=== PATIENT | female | born 1995 | race Caucasian/White ===

== ENCOUNTER → 2016-08-24 | Outpatient (CLI) | payer BC ==
[~2016-08-24] MED LIST: BACTRIM DS 8001 TA1 PO; DEPO SHOT IM; DONNATAL1 TAB PO; FLAGYL500 MG PO; HYDROCODONE BIT1 T11 PO; LOMOTIL 0.025 M1 TA1 PO; MEDROL DOSEPAK4 MG PO; MIRALAX POWDER255 GM PO; NAPROSYN500 MG PO; ONDANSETRON4 MG SL; PROZAC20 MG PO; TYLENOL W/CODEI1 TA2 PO; ZANTAC150 MG PO; ZITHROMAX250 MG PO; ZOLOFT100 MG PO
== END | disposition home or self-care (01) ==
LOC: LAB 12:19
DX: N91.2 Amenorrhea, unspecified (principal)

== ENCOUNTER → 2017-04-06 | Outpatient (CLI) | payer BC ==
[2017-04-07 15:09] LABS: ANTICARDIOLIPIN AB, IGG, QN <9 GPL U/mL (0-14); ANTICARDIOLIPIN AB, IGM, QN 9 MPL U/mL (0-12); CARDIOLIPIN AB IGA 161836 <9 APL U/mL (0-11)
[2017-04-08 00:09] LABS: LUPUS DRVVT 39.9 sec (0.0-47.0)
[2017-04-08 01:05] LABS: LUPUS REFLEX INTERPRETATION Comment: (.)
== END | disposition home or self-care (01) ==
LOC: LAB 15:40
PROVIDERS: Internal Medicine Hematology & Oncology
DX: D68.59 Other primary thrombophilia (principal)

== ENCOUNTER → 2017-08-03 | Outpatient (CLI) | payer BC ==
[2017-08-03 08:50] LABS: BASO % 0.7 % (0.0-1.0); EOS # 0.2 10*3/uL (0.0-0.4); EOS % 2.9 % (1.0-4.0); HEMATOCRIT 42.4 % (37.0-47.0); HEMOGLOBIN 13.5 g/dl (12.0-16.0); LYMPH # 1.7 10*3/uL (1.3-4.4); LYMPH % 29.7 % (27.0-41.0); MEAN CELL VOLUME 85.3 fl (81.0-99.0); MEAN CORPUSCULAR HGB 27.2 pg (27.0-31.0); MEAN CORPUSCULAR HGB CONC 31.8 g/dl (33.0-37.0); MEAN PLATELET VOLUME 11.1 fl (9.6-12.3); MONO # 0.4 10*3/uL (0.1-1.0); MONO % 7.2 % (3.0-9.0); NEUT # 3.5 10*3/uL (2.3-7.9); NEUT % 59.2 % (47.0-73.0); PLATELET COUNT AUTOMATED 290 10*3/uL (130-400); RED BLOOD COUNT 4.97 10*6/uL (4.10-5.10); RED CELL DISTRI WIDTH 13.4 % (0-14.5); WHITE BLOOD COUNT 5.8 10*3/uL (4.8-10.8)
[2017-08-03 09:12] LABS: ALBUMIN 3.4 gm/dl (3.1-4.5); BUN 9 mg/dl (7-24); CHLORIDE 102 mmol/L (98-107); IRON 48 ug/dL (50-170); POTASSIUM 3.6 mmol/L (3.5-5.1); SGOT/AST 19 IU/L (3-35); SGPT/ALT 21 U/L (12-78); SODIUM 140 mmol/L (136-145); TOTAL IRON BINDING CAPACITY 222 ug/dl (250-450); TOTAL PROTEIN 7.2 gm/dL (6.4-8.2)
[2017-08-03 09:19] LABS: ALKALINE PHOSPHATASE 82 U/L (45-117)
[2017-08-03 11:14] LABS: VITAMIN D, 25-HYDROXY 23.9 ng/mL (30-100)
[2017-08-03 11:15] LABS: FERRITIN 82.9 ng/mL (10.0-291.0)
[2017-08-04 13:04] LABS: t-TRANSGLUTAMINASE (tTG) IGA <2 U/mL (0-3)
[2017-08-05 09:06] LABS: INSULIN-LIKE GROWTH FACTOR-1 146 ng/mL (.)
[2017-08-05 16:08] LABS: PROINSULIN 140533 2.6 pmol/L (0.0-10.0)
== END | disposition home or self-care (01) ==
LOC: LAB 07:52
PROVIDERS: Internal Medicine Endocrinology, Diabetes & Metabolism
DX: D51.9 Vitamin B12 deficiency anemia, unspecified (principal); E16.2 Hypoglycemia, unspecified; E55.9 Vitamin D deficiency, unspecified; R53.83 Other fatigue

== ENCOUNTER 2017-09-19 09:31 | Emergency (ER) | payer BC ==
[~2017-09-19] VITALS: Ht 167.6 cm; Wt 115.2 kg
[2017-09-19 10:05] LABS: BASO # 0.1 10*3/uL (0.0-0.1); BASO % 0.9 % (0.0-1.0); EOS # 0.2 10*3/uL (0.0-0.4); EOS % 3.5 % (1.0-4.0); HEMATOCRIT 44.5 % (37.0-47.0); HEMOGLOBIN 14.6 g/dl (12.0-16.0); LYMPH % 36.2 % (27.0-41.0); MEAN CELL VOLUME 86.6 fl (81.0-99.0); MEAN CORPUSCULAR HGB 28.4 pg (27.0-31.0); MEAN CORPUSCULAR HGB CONC 32.8 g/dl (33.0-37.0); MEAN PLATELET VOLUME 11.3 fl (9.6-12.3); MONO # 0.5 10*3/uL (0.1-1.0); MONO % 8.6 % (3.0-9.0); NEUT # 2.8 10*3/uL (2.3-7.9); NEUT % 50.6 % (47.0-73.0); PLATELET COUNT AUTOMATED 215 10*3/uL (130-400); RED BLOOD COUNT 5.14 10*6/uL (4.10-5.10); RED CELL DISTRI WIDTH 15.9 % (0-14.5); WHITE BLOOD COUNT 5.5 10*3/uL (4.8-10.8)
[2017-09-19 10:12] LABS: BILIRUBIN 3+ (NEGATIVE); BLOOD 3+ (NEGATIVE); CLARITY CLOUDY (CLEAR); COLOR YELLOW (YELLOW); GLUCOSE NEGATIVE (NEGATIVE); KETONE 3+ (NEGATIVE); NITRITE NEGATIVE (NEGATIVE); SPECIFIC GRAVITY >= 1.030 (1.005-1.030)
[2017-09-19 10:20] LABS: ALBUMIN 3.9 gm/dl (3.1-4.5); ALKALINE PHOSPHATASE 85 U/L (45-117); BUN 7 mg/dl (7-24); CHLORIDE 106 mmol/L (98-107); CREATININE 0.59 mg/dL (0.55-1.02); POTASSIUM 3.5 mmol/L (3.5-5.1); SGOT/AST 17 IU/L (3-35); SGPT/ALT 26 U/L (12-78); SODIUM 144 mmol/L (136-145); TOTAL PROTEIN 6.8 gm/dL (6.4-8.2)
[2017-09-19 10:53] LABS: LEUKO ESTERASE NEGATIVE (NEGATIVE)
[2017-09-19 10:55] LABS: BACTERIA 2+; MUCOUS 1+; RBC 31-40 rbc/hpf (0-2)
[2017-09-19 11:22] VITALS: BP 122/71
[2017-09-19] MEDS ORDERED: SEPTDS PO (12:45)
[2017-09-19] MEDS ORDERED: NAPROSYN500 MG PO (12:45)
[2017-09-19] MEDS ORDERED: CYCLOBENZAPRINE10 MG PO (12:45)
== END 2017-09-19 12:56 | disposition home or self-care (01) ==
LOC: ED 09:31
PROVIDERS: Nurse Practitioner Family
DX: R82.71 Bacteriuria (principal); M54.5 Low back pain; R10.32 Left lower quadrant pain

== ENCOUNTER 2017-10-01 17:17 | Emergency (ER) | payer BC ==
[~2017-10-01] VITALS: Wt 113.4 kg
[~2017-10-01 17:17] MED LIST changes: +CYCLOBENZAPRINE10 MG PO; +SEPTDS PO
[2017-10-01] MEDS ORDERED: PRILOSEC20 M1 PO (17:26)
[2017-10-01] MEDS ORDERED: B COMPLEX1 EACH PO (17:26)
[2017-10-01 18:01] LABS: BASO # 0.1 10*3/uL (0.0-0.1); EOS # 0.1 10*3/uL (0.0-0.4); HEMATOCRIT 40.5 % (37.0-47.0); HEMOGLOBIN 13.7 g/dl (12.0-16.0); LYMPH # 2.1 10*3/uL (1.3-4.4); LYMPH % 34.6 % (27.0-41.0); MEAN CELL VOLUME 86.2 fl (81.0-99.0); MEAN CORPUSCULAR HGB 29.1 pg (27.0-31.0); MEAN CORPUSCULAR HGB CONC 33.8 g/dl (33.0-37.0); MEAN PLATELET VOLUME 11.1 fl (9.6-12.3); MONO # 0.5 10*3/uL (0.1-1.0); MONO % 8.3 % (3.0-9.0); NEUT # 3.3 10*3/uL (2.3-7.9); NEUT % 53.9 % (47.0-73.0); PLATELET COUNT AUTOMATED 184 10*3/uL (130-400); RED CELL DISTRI WIDTH 15.6 % (0-14.5); WHITE BLOOD COUNT 6.2 10*3/uL (4.8-10.8)
[2017-10-01 18:18] LABS: ALBUMIN 3.7 gm/dl (3.1-4.5); ALKALINE PHOSPHATASE 84 U/L (45-117); BUN 9 mg/dl (7-24); CHLORIDE 108 mmol/L (98-107); CREATININE 0.74 mg/dL (0.55-1.02); LIPASE 133 U/L (73-393); POTASSIUM 3.6 mmol/L (3.5-5.1); SGOT/AST 14 IU/L (3-35); SGPT/ALT 23 U/L (12-78); SODIUM 142 mmol/L (136-145); TOTAL PROTEIN 6.5 gm/dL (6.4-8.2)
[2017-10-01 18:19] LABS: FREE T4 1.18 ng/dl (0.76-1.46); TROPONIN I < 0.015 ng/ml (<0.045)
[2017-10-01 18:28] LABS: BILIRUBIN 3+ (NEGATIVE); BLOOD NEGATIVE (NEGATIVE); CLARITY SL CLOUDY (CLEAR); COLOR YELLOW (YELLOW); GLUCOSE NEGATIVE (NEGATIVE); KETONE 3+ (NEGATIVE); LEUKO ESTERASE NEGATIVE (NEGATIVE); NITRITE NEGATIVE (NEGATIVE); SPECIFIC GRAVITY >= 1.030 (1.005-1.030)
[2017-10-01 18:34] LABS: RBC 0-2 rbc/hpf (0-2)
[2017-10-01 18:35] LABS: BACTERIA 4+; MUCOUS TRACE
[2017-10-01 20:00] VITALS: BP 128/76
== END 2017-10-01 20:21 | disposition home or self-care (01) ==
LOC: ED 17:17
PROVIDERS: Registered Nurse
DX: E86.0 Dehydration (principal); R00.2 Palpitations; Z79.899 Other long term (current) drug therapy

== ENCOUNTER 2017-11-16 10:53 | Emergency (ER) | payer BC ==
[~2017-11-16] VITALS: Ht 167.6 cm; Wt 104.3 kg
--- NOTE | ~2017-11-16 | EKG ---
[place], [place] ELECTROCARDIOGRAM REPORT NAME: DEMI GIORDANO UNIT #: [id number] ROOM: DOCTOR: EPIPHANY DRAFT REPORT BIRTHDATE: [address] [facility] Test Date: 2017-11-16 Test Time: 11:14:26 Pat Name: DEMI GIORDANO Department: Room: Gender: F [employer] Professional: : 1995 Requested By: MATILDA DE LA PAZ Order Number: [id number] Reading MD: Mara Aranda MD Measurements Intervals [place] Rate: 55 P: 15 AR: 148 QRS: 80 QRSD: 87 T: 35 QT: 460 QTc: 440 Interpretive Statements Sinus rhythm Normal ECG Electronically Signed On 11-21-2017 14:18:59 PDT by Mara Aranda MD CM:EKGRPT:ELECTROCARDIOGRAM REPORT [id number] MATILDA GALARZA DRAFT REPORT MATILDA DE LA PAZ MD
[~2017-11-16 10:53] MED LIST changes: +B COMPLEX1 EACH PO; +PRILOSEC20 M1 PO
[2017-11-16] MEDS ORDERED: MULTIVITAMINS1 EAC5 PO (11:02)
[2017-11-16 11:08] LABS: BASO # 0.1 10*3/uL (0.0-0.1); EOS # 0.1 10*3/uL (0.0-0.4); EOS % 2.5 % (1.0-4.0); HEMATOCRIT 42.6 % (37.0-47.0); HEMOGLOBIN 13.9 g/dl (12.0-16.0); LYMPH # 1.8 10*3/uL (1.3-4.4); LYMPH % 35.9 % (27.0-41.0); MEAN CELL VOLUME 90.3 fl (81.0-99.0); MEAN CORPUSCULAR HGB 29.4 pg (27.0-31.0); MEAN CORPUSCULAR HGB CONC 32.6 g/dl (33.0-37.0); MEAN PLATELET VOLUME 11.2 fl (9.6-12.3); MONO # 0.3 10*3/uL (0.1-1.0); MONO % 5.7 % (3.0-9.0); NEUT # 2.8 10*3/uL (2.3-7.9); NEUT % 54.7 % (47.0-73.0); PLATELET COUNT AUTOMATED 208 10*3/uL (130-400); RED BLOOD COUNT 4.72 10*6/uL (4.10-5.10); WHITE BLOOD COUNT 5.1 10*3/uL (4.8-10.8)
[2017-11-16 11:17] LABS: ACT PARTIAL THROMBO TIME 22.7 SECONDS (20.8-31.5)
[2017-11-16 11:24] LABS: ALBUMIN 3.9 gm/dl (3.1-4.5); ALKALINE PHOSPHATASE 80 U/L (45-117); BUN 9 mg/dl (7-24); CHLORIDE 107 mmol/L (98-107); CREATININE 0.83 mg/dL (0.55-1.02); POTASSIUM 3.8 mmol/L (3.5-5.1); SGOT/AST 9 IU/L (3-35); SGPT/ALT 18 U/L (12-78); SODIUM 142 mmol/L (136-145)
[2017-11-16 11:28] LABS: TROPONIN I < 0.015 ng/ml (<0.045)
[2017-11-16 14:53] VITALS: BP 116/58
== END 2017-11-16 14:55 | disposition home or self-care (01) ==
LOC: ED 10:53
PROVIDERS: Emergency Medicine
DX: R07.89 Other chest pain (principal); Z79.899 Other long term (current) drug therapy

== ENCOUNTER → 2018-01-12 | Outpatient (CLI) | payer BC ==
[~2018-01-12] MED LIST changes: +MULTIVITAMINS1 EAC5 PO
[2018-01-12 14:29] LABS: HEMATOCRIT 41.9 % (37.0-47.0); MEAN CELL VOLUME 89.5 fl (81.0-99.0); MEAN CORPUSCULAR HGB 29.9 pg (27.0-31.0); MEAN CORPUSCULAR HGB CONC 33.4 g/dl (33.0-37.0); MEAN PLATELET VOLUME 10.9 fl (9.6-12.3); RED BLOOD COUNT 4.68 10*6/uL (4.10-5.10); RED CELL DISTRI WIDTH 12.8 % (0-14.5); WHITE BLOOD COUNT 6.6 10*3/uL (4.8-10.8)
[2018-01-12 15:06] LABS: ALBUMIN 3.9 gm/dl (3.1-4.5); ALKALINE PHOSPHATASE 85 U/L (45-117); BUN 13 mg/dl (7-24); CHLORIDE 107 mmol/L (98-107); CHOLESTEROL 166 mg/dL (<200); CPK 58 U/L (26-192); CREATININE 0.74 mg/dL (0.55-1.02); FREE T4 0.96 ng/dl (0.76-1.46); HDL CHOLESTEROL 56 mg/dl (40-60); LDL CHOLESTEROL 92 mg/dL (9-159); POTASSIUM 3.6 mmol/L (3.5-5.1); SGOT/AST 10 IU/L (3-35); SGPT/ALT 17 U/L (12-78); SODIUM 141 mmol/L (136-145); TOTAL PROTEIN 7.1 gm/dL (6.4-8.2); TRIGLYCERIDES 92 mg/dl (<150); VLDL CHOLESTEROL 18 mg/dL (6-40)
[2018-01-12 16:43] LABS: VITAMIN D, 25-HYDROXY 23.4 ng/mL (30-100)
[2018-01-13 07:08] LABS: FREE T3 010389 3.2 pg/mL (2.0-4.4)
[2018-01-13 08:17] LABS: RHEUMATOID ARTHRITIS FACTOR <10.0 IU/mL (0.0-13.9)
== END | disposition home or self-care (01) ==
LOC: LAB 13:57
PROVIDERS: Family Medicine
DX: E55.9 Vitamin D deficiency, unspecified (principal); R53.83 Other fatigue; M25.50 Pain in unspecified joint; E66.9 Obesity, unspecified

== ENCOUNTER 2018-03-26 16:01 | Emergency (ER) | payer BC ==
[~2018-03-26] VITALS: Ht 167.6 cm; Wt 86.2 kg
--- NOTE | ~2018-03-26 | EKG ---
[place], [place] ELECTROCARDIOGRAM REPORT NAME: DEMI REYES UNIT #: [id number] ROOM: DOCTOR: EPIPHANY DRAFT REPORT BIRTHDATE: [birth year] [facility] Test Date: 2018-03-26 Test Time: 17:11:45 Pat Name: DEMI REYES Department: Room: Gender: F [employer]: JAYRO : 1995 Requested By: DOMENICO UMANZOR Order Number: [id number] Reading MD: Ridge Shepherd MD Measurements Intervals [place] Rate: 65 P: 17 NE: 147 QRS: 73 QRSD: 92 T: 11 QT: 409 QTc: 426 Interpretive Statements Wandering atrial pacemaker Baseline wander in lead(s) II,III,aVF,V2 Compared to ECG 11/16/2017 11:14:26 Sinus rhythm no longer present Electronically Signed On 03-27-2018 15:32:52 PST by Ridge Shepherd MD CM:EKGRPT:ELECTROCARDIOGRAM REPORT [id number] DOMENICO GALARZA DRAFT REPORT DOMENICO DE LA ROSA
[2018-03-26 17:19] LABS: BASO % 0.6 % (0.0-1.0); EOS # 0.1 10*3/uL (0.0-0.4); EOS % 2.2 % (1.0-4.0); HEMATOCRIT 41.5 % (37.0-47.0); HEMOGLOBIN 13.6 g/dl (12.0-16.0); LYMPH # 2.1 10*3/uL (1.3-4.4); LYMPH % 39.6 % (27.0-41.0); MEAN CELL VOLUME 90.2 fl (81.0-99.0); MEAN CORPUSCULAR HGB 29.6 pg (27.0-31.0); MEAN CORPUSCULAR HGB CONC 32.8 g/dl (33.0-37.0); MEAN PLATELET VOLUME 10.7 fl (9.6-12.3); MONO # 0.4 10*3/uL (0.1-1.0); MONO % 6.5 % (3.0-9.0); NEUT # 2.7 10*3/uL (2.3-7.9); NEUT % 50.9 % (47.0-73.0); PLATELET COUNT AUTOMATED 183 10*3/uL (130-400); RED CELL DISTRI WIDTH 13.4 % (0-14.5); WHITE BLOOD COUNT 5.4 10*3/uL (4.8-10.8)
[2018-03-26 17:29] LABS: BILIRUBIN NEGATIVE (NEGATIVE); BLOOD NEGATIVE (NEGATIVE); CLARITY SL CLOUDY (CLEAR); COLOR YELLOW (YELLOW); GLUCOSE NEGATIVE (NEGATIVE); KETONE TRACE (NEGATIVE); LEUKO ESTERASE NEGATIVE (NEGATIVE); NITRITE NEGATIVE (NEGATIVE); SPECIFIC GRAVITY >= 1.030 (1.005-1.030); UROBILINOGEN 0.2 E.U./dl (0.2-1.0)
[2018-03-26 17:31] LABS: ACT PARTIAL THROMBO TIME 22.4 SECONDS (20.8-31.5)
[2018-03-26 17:33] LABS: BACTERIA 3+; MUCOUS TRACE; RBC 0-2 rbc/hpf (0-2)
[2018-03-26 17:38] LABS: ALBUMIN 3.6 gm/dl (3.1-4.5); ALKALINE PHOSPHATASE 73 U/L (45-117); BUN 16 mg/dl (7-24); CHLORIDE 105 mmol/L (98-107); CREATININE 0.79 mg/dL (0.55-1.02); LIPASE 179 U/L (73-393); POTASSIUM 4.1 mmol/L (3.5-5.1); SGOT/AST 12 IU/L (3-35); SGPT/ALT 16 U/L (12-78); SODIUM 141 mmol/L (136-145); TOTAL PROTEIN 6.5 gm/dL (6.4-8.2)
[2018-03-26 17:39] LABS: TROPONIN I < 0.015 ng/ml (<0.045)
[2018-03-26 18:59] VITALS: BP 100/70
== END 2018-03-26 18:56 | disposition home or self-care (01) ==
LOC: ED 16:01
PROVIDERS: Physician Assistant
DX: R11.0 Nausea (principal); R53.1 Weakness; R79.1 Abnormal coagulation profile; Z79.899 Other long term (current) drug therapy; Z98.84 Bariatric surgery status

== ENCOUNTER → 2018-04-04 | Outpatient (CLI) | payer BC ==
[2018-04-04 11:23] LABS: ALBUMIN 3.6 gm/dl (3.1-4.5)
[2018-04-04 11:32] LABS: FREE T4 0.98 ng/dl (0.76-1.46)
[2018-04-04 11:38] LABS: THYROID STIM HORMONE (HS) 2.53 uIU/ml (0.358-4.75)
== END | disposition home or self-care (01) ==
LOC: LAB 09:59
PROVIDERS: Internal Medicine
DX: E03.9 Hypothyroidism, unspecified (principal); E55.9 Vitamin D deficiency, unspecified; E16.2 Hypoglycemia, unspecified

== ENCOUNTER → 2018-05-24 | Outpatient (CLI) | payer BC ==
[~2018-05-24] MED LIST changes: +DICLEGIS DR 101 EACH PO; +REGLAN10 M1 PO
== END | disposition home or self-care (01) ==
LOC: MAMMO 05-23 13:30
DX: N63.10 Unspecified lump in the right breast, unspecified quadrant (principal); N63.20 Unspecified lump in the left breast, unspecified quadrant

== ENCOUNTER 2018-05-28 19:38 | Emergency (ER) | payer BC ==
[~2018-05-28] VITALS: Ht 167.6 cm; Wt 86.2 kg
[~2018-05-28 19:38] MED LIST changes: -DICLEGIS DR 101 EACH PO; -REGLAN10 M1 PO
[2018-05-28 19:39] VITALS: BP 118/67
[2018-05-28 19:57] LABS: BASO % 0.4 % (0.0-1.0); EOS # 0.1 10*3/uL (0.0-0.4); EOS % 1.5 % (1.0-4.0); HEMATOCRIT 43.4 % (37.0-47.0); HEMOGLOBIN 14.4 g/dl (12.0-16.0); LYMPH # 1.4 10*3/uL (1.3-4.4); LYMPH % 14.5 % (27.0-41.0); MEAN CELL VOLUME 90.4 fl (81.0-99.0); MEAN CORPUSCULAR HGB CONC 33.2 g/dl (33.0-37.0); MONO # 0.6 10*3/uL (0.1-1.0); MONO % 6.6 % (3.0-9.0); NEUT # 7.1 10*3/uL (2.3-7.9); NEUT % 76.7 % (47.0-73.0); PLATELET COUNT AUTOMATED 216 10*3/uL (130-400); RED CELL DISTRI WIDTH 13.1 % (0-14.5); WHITE BLOOD COUNT 9.3 10*3/uL (4.8-10.8)
[2018-05-28 20:13] LABS: ALBUMIN 3.5 gm/dl (3.1-4.5); ALKALINE PHOSPHATASE 70 U/L (45-117); BUN 12 mg/dl (7-24); CHLORIDE 106 mmol/L (98-107); CREATININE 0.64 mg/dL (0.55-1.02); LIPASE 124 U/L (73-393); SGOT/AST 10 IU/L (3-35); SGPT/ALT 16 U/L (12-78); SODIUM 140 mmol/L (136-145)
[2018-05-28] MEDS ORDERED: DICLEGIS DR 101 EACH PO (20:46)
[2018-05-29] MEDS ORDERED: REGLAN10 M1 PO (14:07)
== END 2018-05-28 20:54 | disposition home or self-care (01) ==
LOC: ED 19:38
PROVIDERS: Physician Assistant
DX: O99.611 Diseases of the digestive system complicating pregnancy, first trimester (principal); K52.9 Noninfective gastroenteritis and colitis, unspecified; Z3A.01 Less than 8 weeks gestation of pregnancy; Z79.899 Other long term (current) drug therapy

== ENCOUNTER 2018-05-29 10:59 | Emergency (ER) | payer BC ==
[~2018-05-29] VITALS: Ht 167.6 cm; Wt 86.2 kg
[~2018-05-29 10:59] MED LIST changes: +DICLEGIS DR 101 EACH PO
[2018-05-29 11:00] VITALS: BP 112/51
[2018-05-29 11:49] LABS: BASO % 0.7 % (0.0-1.0); EOS # 0.1 10*3/uL (0.0-0.4); EOS % 1.3 % (1.0-4.0); HEMATOCRIT 38.4 % (37.0-47.0); HEMOGLOBIN 12.6 g/dl (12.0-16.0); LYMPH # 1.3 10*3/uL (1.3-4.4); LYMPH % 23.6 % (27.0-41.0); MEAN CELL VOLUME 91.4 fl (81.0-99.0); MEAN CORPUSCULAR HGB CONC 32.8 g/dl (33.0-37.0); MEAN PLATELET VOLUME 10.2 fl (9.6-12.3); MONO # 0.5 10*3/uL (0.1-1.0); MONO % 8.5 % (3.0-9.0); NEUT # 3.6 10*3/uL (2.3-7.9); NEUT % 65.9 % (47.0-73.0); PLATELET COUNT AUTOMATED 172 10*3/uL (130-400); RED CELL DISTRI WIDTH 13.1 % (0-14.5); WHITE BLOOD COUNT 5.4 10*3/uL (4.8-10.8)
[2018-05-29 12:07] LABS: ALBUMIN 3.1 gm/dl (3.1-4.5); ALKALINE PHOSPHATASE 68 U/L (45-117); BUN 11 mg/dl (7-24); CHLORIDE 110 mmol/L (98-107); CREATININE 0.66 mg/dL (0.55-1.02); LIPASE 94 U/L (73-393); POTASSIUM 3.8 mmol/L (3.5-5.1); SGOT/AST 9 IU/L (3-35); SGPT/ALT 14 U/L (12-78); SODIUM 142 mmol/L (136-145); TOTAL PROTEIN 6.5 gm/dL (6.4-8.2)
[2018-05-29 12:43] LABS: BILIRUBIN 1+ (NEGATIVE); BLOOD NEGATIVE (NEGATIVE); CLARITY SL CLOUDY (CLEAR); COLOR YELLOW (YELLOW); GLUCOSE NEGATIVE (NEGATIVE); KETONE 2+ (NEGATIVE); LEUKO ESTERASE NEGATIVE (NEGATIVE); NITRITE NEGATIVE (NEGATIVE); PH 5.5 (5.0-9.0); SPECIFIC GRAVITY >= 1.030 (1.005-1.030); UROBILINOGEN 0.2 E.U./dl (0.2-1.0)
[2018-05-29 13:02] LABS: BACTERIA 2+; MUCOUS TRACE
[2018-05-29] MEDS ORDERED: REGLAN10 M1 PO (14:07)
== END 2018-05-29 14:35 | disposition home or self-care (01) ==
LOC: ED 10:59
PROVIDERS: Nurse Practitioner Family
DX: O26.891 Other specified pregnancy related conditions, first trimester (principal); R11.2 Nausea with vomiting, unspecified; R53.1 Weakness; Z3A.01 Less than 8 weeks gestation of pregnancy; Z79.899 Other long term (current) drug therapy

== ENCOUNTER → 2018-07-03 | Outpatient (CLI) | payer BC ==
[~2018-07-03] MED LIST changes: +REGLAN10 M1 PO
[2018-07-03 09:29] LABS: FREE T4 1.2 ng/dl (0.76-1.46); THYROID STIM HORMONE (HS) 1.25 uIU/ml (0.358-4.75)
== END | disposition home or self-care (01) ==
LOC: LAB 08:27
PROVIDERS: Family Medicine
DX: E03.9 Hypothyroidism, unspecified (principal)

== ENCOUNTER → 2018-07-26 | Outpatient (CLI) | payer BC ==
[2018-07-26 11:04] LABS: HEMATOCRIT 36.1 % (37.0-47.0); MEAN CELL VOLUME 92.6 fl (81.0-99.0); MEAN CORPUSCULAR HGB 30.8 pg (27.0-31.0); MEAN CORPUSCULAR HGB CONC 33.2 g/dl (33.0-37.0); MEAN PLATELET VOLUME 10.7 fl (9.6-12.3); RED BLOOD COUNT 3.9 10*6/uL (4.10-5.10); RED CELL DISTRI WIDTH 14.1 % (0-14.5); WHITE BLOOD COUNT 6.7 10*3/uL (4.8-10.8)
[2018-07-26 11:23] LABS: ALBUMIN 2.8 gm/dl (3.1-4.5); ALKALINE PHOSPHATASE 58 U/L (45-117); BUN 9 mg/dl (7-24); CHLORIDE 106 mmol/L (98-107); CREATININE 0.55 mg/dL (0.55-1.02); POTASSIUM 4.2 mmol/L (3.5-5.1); SGOT/AST 10 IU/L (3-35); SGPT/ALT 14 U/L (12-78); SODIUM 137 mmol/L (136-145); TOTAL PROTEIN 6.1 gm/dL (6.4-8.2)
== END | disposition home or self-care (01) ==
LOC: LAB 10:17
PROVIDERS: Family Medicine
DX: O09.90 Supervision of high risk pregnancy, unspecified, unspecified trimester (principal); R53.83 Other fatigue; Z79.899 Other long term (current) drug therapy

== ENCOUNTER 2018-09-08 19:29 | Emergency (ER) | payer BC ==
[~2018-09-08] VITALS: Ht 167.6 cm; Wt 91.2 kg
[2018-09-08 21:11] LABS: BASO % 0.4 % (0.0-1.0); EOS # 0.1 10*3/uL (0.0-0.4); EOS % 1.8 % (1.0-4.0); HEMATOCRIT 28.7 % (37.0-47.0); HEMOGLOBIN 9.4 g/dl (12.0-16.0); LYMPH # 2.3 10*3/uL (1.3-4.4); LYMPH % 29.2 % (27.0-41.0); MEAN CELL VOLUME 94.1 fl (81.0-99.0); MEAN CORPUSCULAR HGB 30.8 pg (27.0-31.0); MEAN CORPUSCULAR HGB CONC 32.8 g/dl (33.0-37.0); MEAN PLATELET VOLUME 10.8 fl (9.6-12.3); MONO # 0.6 10*3/uL (0.1-1.0); MONO % 7.5 % (3.0-9.0); NEUT # 4.9 10*3/uL (2.3-7.9); NEUT % 60.7 % (47.0-73.0); PLATELET COUNT AUTOMATED 177 10*3/uL (130-400); RED BLOOD COUNT 3.05 10*6/uL (4.10-5.10); RED CELL DISTRI WIDTH 13.6 % (0-14.5)
[2018-09-08 21:35] LABS: ALBUMIN 2.2 gm/dl (3.1-4.5); ALKALINE PHOSPHATASE 61 U/L (45-117); BUN 13 mg/dl (7-24); CHLORIDE 111 mmol/L (98-107); CREATININE 0.53 mg/dL (0.55-1.02); LIPASE 190 U/L (73-393); POTASSIUM 3.5 mmol/L (3.5-5.1); SGOT/AST 6 IU/L (3-35); SGPT/ALT 10 U/L (12-78); SODIUM 143 mmol/L (136-145)
[2018-09-08 22:36] LABS: BILIRUBIN NEGATIVE (NEGATIVE); BLOOD NEGATIVE (NEGATIVE); CLARITY CLEAR (CLEAR); COLOR YELLOW (YELLOW); GLUCOSE NEGATIVE (NEGATIVE); KETONE NEGATIVE (NEGATIVE); LEUKO ESTERASE NEGATIVE (NEGATIVE); NITRITE NEGATIVE (NEGATIVE); PH 6.5 (5.0-9.0); SPECIFIC GRAVITY 1.015 (1.005-1.030)
[2018-09-08 23:21] VITALS: BP 79/40
[2018-09-08 23:30] LABS: BACTERIA 1+
== END 2018-09-09 00:18 | disposition short-term general hospital (02) ==
LOC: ED 19:29
PROVIDERS: Physician Assistant
DX: O26.52 Maternal hypotension syndrome, second trimester (principal); O26.892 Other specified pregnancy related conditions, second trimester; M54.9 Dorsalgia, unspecified; Z3A.21 21 weeks gestation of pregnancy; Z79.899 Other long term (current) drug therapy

== ENCOUNTER → 2018-11-02 | Outpatient (CLI) | payer BC ==
[2018-11-02 11:41] LABS: BASO % 0.5 % (0.0-1.0); EOS % 0.3 % (1.0-4.0); HEMATOCRIT 32.8 % (37.0-47.0); HEMOGLOBIN 10.4 g/dl (12.0-16.0); LYMPH # 1.5 10*3/uL (1.3-4.4); MEAN CELL VOLUME 89.1 fl (81.0-99.0); MEAN CORPUSCULAR HGB 28.3 pg (27.0-31.0); MEAN CORPUSCULAR HGB CONC 31.7 g/dl (33.0-37.0); MONO # 0.5 10*3/uL (0.1-1.0); MONO % 7.1 % (3.0-9.0); NEUT # 5.3 10*3/uL (2.3-7.9); NEUT % 71.7 % (47.0-73.0); PLATELET COUNT AUTOMATED 217 10*3/uL (130-400); RED BLOOD COUNT 3.68 10*6/uL (4.10-5.10); RED CELL DISTRI WIDTH 12.4 % (0-14.5); WHITE BLOOD COUNT 7.5 10*3/uL (4.8-10.8)
== END | disposition home or self-care (01) ==
LOC: LAB 10:56
DX: O30.033 Twin pregnancy, monochorionic/diamniotic, third trimester (principal); Z3A.28 28 weeks gestation of pregnancy

== ENCOUNTER → 2020-03-09 | Outpatient (CLI) | payer BC ==
[~2020-03-09] MED LIST changes: +ROBAXIN-750750 MG PO
[2020-03-09 11:22] LABS: HEMATOCRIT 41.2 % (37.0-47.0); MEAN CELL VOLUME 87.1 fl (81.0-99.0); MEAN CORPUSCULAR HGB 26.8 pg (27.0-31.0); MEAN CORPUSCULAR HGB CONC 30.8 g/dl (33.0-37.0); MEAN PLATELET VOLUME 10.3 fl (9.6-12.3); RED BLOOD COUNT 4.73 10*6/uL (4.10-5.10); RED CELL DISTRI WIDTH 12.6 % (0-14.5); WHITE BLOOD COUNT 5.3 10*3/uL (4.8-10.8)
[2020-03-09 11:52] LABS: ALBUMIN 3.4 gm/dl (3.1-4.5); ALKALINE PHOSPHATASE 107 U/L (45-117); BUN 15 mg/dl (7-24); CHLORIDE 106 mmol/L (98-107); CHOLESTEROL 177 mg/dL (<200); CREATININE 0.86 mg/dL (0.55-1.02); HDL CHOLESTEROL 75 mg/dl (40-60); LDL CHOLESTEROL 89 mg/dL (9-159); POTASSIUM 3.8 mmol/L (3.5-5.1); SGOT/AST 11 IU/L (3-35); SGPT/ALT 14 U/L (12-78); SODIUM 140 mmol/L (136-145); TOTAL PROTEIN 6.9 gm/dL (6.4-8.2); TRIGLYCERIDES 67 mg/dl (<150); VLDL CHOLESTEROL 13 mg/dL (6-40)
== END | disposition home or self-care (01) ==
LOC: LAB 11:05
PROVIDERS: ATTEND Nurse Practitioner Family
DX: Z13.220 Encounter for screening for lipoid disorders (principal); R53.83 Other fatigue; R42 Dizziness and giddiness; F41.9 Anxiety disorder, unspecified; Z98.84 Bariatric surgery status

== ENCOUNTER 2020-05-03 23:49 | Emergency (ER) | payer BC ==
[~2020-05-03] VITALS: Ht 167.6 cm; Wt 90.7 kg
[~2020-05-03 23:49] MED LIST changes: -ROBAXIN-750750 MG PO
[2020-05-03 23:59] VITALS: BP 112/71
[2020-05-04] MEDS ORDERED: NAPROSYN500 MG PO (00:08)
[2020-05-04] MEDS ORDERED: ROBAXIN-750750 MG PO (00:08)
== END 2020-05-04 00:26 | disposition home or self-care (01) ==
LOC: ED 23:49
DX: S16.1XXA Strain of muscle, fascia and tendon at neck level, initial encounter (principal); R51.9 Headache, unspecified; M54.5 Low back pain; E03.9 Hypothyroidism, unspecified; Z87.442 Personal history of urinary calculi; Z79.899 Other long term (current) drug therapy; Z98.84 Bariatric surgery status; Z96.22 Myringotomy tube(s) status; V89.2XXA Person injured in unspecified motor-vehicle accident, traffic, initial encounter; Y93.89 Activity, other specified; Y92.488 Other paved roadways as the place of occurrence of the external cause; Y99.8 Other external cause status

== ENCOUNTER → 2021-02-04 | Outpatient (CLI) | payer BC ==
[~2021-02-04] MED LIST changes: +ROBAXIN-750750 MG PO
== END | disposition home or self-care (01) ==
LOC: COVID19 16:25
PROVIDERS: ATTEND Internal Medicine
DX: Z11.52 Encounter for screening for COVID-19 (principal)

== ENCOUNTER 2022-03-29 09:44 | Emergency (ER) | payer BC ==
[~2022-03-29] VITALS: Ht 167.6 cm; Wt 108.9 kg
[2022-03-29 09:53] VITALS: BP 123/87
[2022-03-29 10:05] LABS: BASO # 0.1 10*3/uL (0.0-0.1); BASO % 1.2 % (0.0-1.0); EOS # 0.2 10*3/uL (0.0-0.4); EOS % 3.8 % (1.0-4.0); HEMATOCRIT 42.3 % (37.0-47.0); LYMPH % 32.4 % (27.0-41.0); MEAN CELL VOLUME 83.4 fl (81.0-99.0); MEAN CORPUSCULAR HGB 26.4 pg (27.0-31.0); MEAN CORPUSCULAR HGB CONC 31.7 g/dl (33.0-37.0); MONO # 0.3 10*3/uL (0.1-1.0); MONO % 5.6 % (3.0-9.0); NEUT # 3.4 10*3/uL (2.3-7.9); NEUT % 56.8 % (47.0-73.0); PLATELET COUNT AUTOMATED 301 10*3/uL (130-400); RED BLOOD COUNT 5.07 10*6/uL (4.10-5.10); RED CELL DISTRI WIDTH 15.7 % (0-14.5)
[2022-03-29 10:22] LABS: ALKALINE PHOSPHATASE 112 U/L (46-116); BUN 15 mg/dl (9-23); CHLORIDE 100 mmol/L (98-107); CREATININE 0.99 mg/dL (0.55-1.02); LIPASE 51 U/L (12-53); POTASSIUM 3.9 mmol/L (3.4-5.1); SGPT/ALT 15 U/L (10-49); SODIUM 136 mmol/L (136-145)
[2022-03-29 10:23] LABS: TOTAL PROTEIN 7.3 gm/dL (6.0-8.0)
== END 2022-03-29 11:11 | disposition home or self-care (01) ==
LOC: ED 09:44
PROVIDERS: Family Medicine
DX: R07.9 Chest pain, unspecified (principal); Z20.822 Contact with and (suspected) exposure to COVID-19; F41.9 Anxiety disorder, unspecified; Z79.899 Other long term (current) drug therapy

== ENCOUNTER → 2022-05-04 | Outpatient (CLI) | payer BC, OTHER ==
[2022-05-04 09:16] LABS: HEMATOCRIT 38.7 % (37.0-47.0); MEAN CELL VOLUME 87.2 fl (81.0-99.0); MEAN CORPUSCULAR HGB 27.5 pg (27.0-31.0); MEAN CORPUSCULAR HGB CONC 31.5 g/dl (33.0-37.0); MEAN PLATELET VOLUME 10.2 fl (9.6-12.3); RED BLOOD COUNT 4.44 10*6/uL (4.10-5.10); WHITE BLOOD COUNT 4.4 10*3/uL (4.8-10.8)
[2022-05-04 09:40] LABS: ALKALINE PHOSPHATASE 91 U/L (46-116); BUN 13 mg/dl (9-23); CHLORIDE 104 mmol/L (98-107); CHOLESTEROL 166 mg/dL (<200); LDL CHOLESTEROL 89 mg/dL (9-159); POTASSIUM 3.9 mmol/L (3.4-5.1); SGPT/ALT 9 U/L (10-49); THYROID STIM HORMONE (HS) 91.907 uIU/ml (0.550-4.780); TRIGLYCERIDES 61 mg/dl (<150)
[2022-05-04 11:14] LABS: VITAMIN D, 25-HYDROXY 23.6 ng/mL (30-100)
[2022-05-08 20:06] LABS: TESTOSTERONE FREE, (DIRECT) 0.5 pg/mL (0.0-4.2)
== END | disposition home or self-care (01) ==
LOC: LAB 08:48
PROVIDERS: ATTEND Family Medicine
DX: Z00.00 Encounter for general adult medical examination without abnormal findings (principal); R53.83 Other fatigue; E74.9 Disorder of carbohydrate metabolism, unspecified; Z13.220 Encounter for screening for lipoid disorders; L68.0 Hirsutism; E55.9 Vitamin D deficiency, unspecified

== ENCOUNTER → 2022-05-21 | Outpatient (CLI) | payer BC | END | disposition home or self-care (01) | LOC: US 10:13 | PROVIDERS: ATTEND Family Medicine | DX: E01.0 Iodine-deficiency related diffuse (endemic) goiter (principal) ==

== ENCOUNTER → 2022-06-03 | Outpatient (CLI) | payer BC, OTHER ==
[2022-06-03 12:02] LABS: FREE T4 1.21 ng/dl (0.89-1.76)
[2022-06-03 12:10] LABS: THYROID STIM HORMONE (HS) 7.354 uIU/ml (0.550-4.780)
== END | disposition home or self-care (01) ==
LOC: LAB 10:54
PROVIDERS: ATTEND Family Medicine
DX: E03.9 Hypothyroidism, unspecified (principal)

== ENCOUNTER 2022-08-19 17:09 | Emergency (ER) | payer BC ==
[~2022-08-19] VITALS: Ht 167.6 cm; Wt 117.9 kg
[2022-08-19] MEDS ORDERED: Synthroid,Levo25 MCG PO (17:15)
[2022-08-19] MEDS ORDERED: FEROSUL325 M1 PO (17:15)
[2022-08-19] MEDS ORDERED: LORAZEPAM0.5 M1 PO (17:16)
[2022-08-19] MEDS ORDERED: FLUOXETINE HCL10 MG PO (17:16)
[2022-08-19] MEDS ORDERED: Motrin,Rufen800 MG PO (18:14)
== END 2022-08-19 18:42 | disposition home or self-care (01) ==
LOC: ED 17:09
DX: S93.402A Sprain of unspecified ligament of left ankle, initial encounter (principal); Z79.899 Other long term (current) drug therapy; W10.8XXA Fall (on) (from) other stairs and steps, initial encounter; Y93.89 Activity, other specified; Y92.89 Other specified places as the place of occurrence of the external cause; Y99.8 Other external cause status

== ENCOUNTER → 2022-10-22 | Outpatient (CLI) | payer OTHER ==
[~2022-10-22] MED LIST changes: +FEROSUL325 M1 PO; +FLUOXETINE HCL10 MG PO; +LORAZEPAM0.5 M1 PO; +Motrin,Rufen800 MG PO; +Synthroid,Levo25 MCG PO
[2022-10-22 11:00] LABS: BASO % 0.7 % (0.0-1.0); EOS # 0.1 10*3/uL (0.0-0.4); HEMATOCRIT 41.1 % (37.0-47.0); LYMPH # 1.6 10*3/uL (1.3-4.4); LYMPH % 28.7 % (27.0-41.0); MEAN CELL VOLUME 82.2 fl (81.0-99.0); MEAN CORPUSCULAR HGB CONC 31.6 g/dl (33.0-37.0); MEAN PLATELET VOLUME 10.6 fl (9.6-12.3); MONO # 0.3 10*3/uL (0.1-1.0); MONO % 5.2 % (3.0-9.0); NEUT # 3.4 10*3/uL (2.3-7.9); NEUT % 63.2 % (47.0-73.0); PLATELET COUNT AUTOMATED 280 10*3/uL (130-400); RED CELL DISTRI WIDTH 15.5 % (0-14.5); WHITE BLOOD COUNT 5.4 10*3/uL (4.8-10.8)
[2022-10-22 11:28] LABS: ALKALINE PHOSPHATASE 122 U/L (46-116); BUN 9 mg/dl (9-23); CHLORIDE 105 mmol/L (98-107); POTASSIUM 4.1 mmol/L (3.4-5.1); SGPT/ALT 9 U/L (10-49); TOTAL PROTEIN 6.8 gm/dL (6.0-8.0)
[2022-10-22 11:32] LABS: VITAMIN D, 25-HYDROXY 35.2 ng/mL (30-100)
== END | disposition home or self-care (01) ==
LOC: LAB 10:35
PROVIDERS: ATTEND Nurse Practitioner Family
DX: E61.1 Iron deficiency (principal); E55.9 Vitamin D deficiency, unspecified; E03.9 Hypothyroidism, unspecified; S93.402S Sprain of unspecified ligament of left ankle, sequela; X58.XXXS Exposure to other specified factors, sequela

== ENCOUNTER → 2022-11-23 | Outpatient (CLI) | payer SELFPAY ==
[~2022-11-23] MED LIST changes: +CIPRO500 MG PO; +PHENERGAN25 M3 PO
== END | disposition home or self-care (01) ==
LOC: LAB 09:57
PROVIDERS: ATTEND Nurse Practitioner Family
DX: E03.9 Hypothyroidism, unspecified (principal)

== ENCOUNTER → 2023-04-07 | Outpatient (CLI) | payer OTHER | END | disposition home or self-care (01) | LOC: MAMMO 00:15 | PROVIDERS: ATTEND Nurse Practitioner Family | DX: N63.13 Unspecified lump in the right breast, lower outer quadrant (principal); F41.9 Anxiety disorder, unspecified; E03.9 Hypothyroidism, unspecified; H83.09 Labyrinthitis, unspecified ear; Z80.3 Family history of malignant neoplasm of breast ==

== ENCOUNTER → 2023-08-03 | Outpatient (CLI) | payer OTHER ==
[2023-08-03 11:37] LABS: BASO % 0.6 % (0.0-1.0); EOS # 0.1 10*3/uL (0.0-0.4); HEMATOCRIT 43.3 % (37.0-47.0); LYMPH # 1.8 10*3/uL (1.3-4.4); LYMPH % 27.2 % (27.0-41.0); MEAN CELL VOLUME 89.5 fl (81.0-99.0); MEAN CORPUSCULAR HGB 28.5 pg (27.0-31.0); MEAN CORPUSCULAR HGB CONC 31.9 g/dl (33.0-37.0); MONO # 0.4 10*3/uL (0.1-1.0); MONO % 5.3 % (3.0-9.0); NEUT # 4.3 10*3/uL (2.3-7.9); NEUT % 64.7 % (47.0-73.0); PLATELET COUNT AUTOMATED 247 10*3/uL (130-400); RED BLOOD COUNT 4.84 10*6/uL (4.10-5.10); RED CELL DISTRI WIDTH 13.1 % (0-14.5); WHITE BLOOD COUNT 6.6 10*3/uL (4.8-10.8)
[2023-08-03 12:15] LABS: VITAMIN D, 25-HYDROXY 26.5 ng/mL (30-100)
[2023-08-03 12:16] LABS: ALKALINE PHOSPHATASE 107 U/L (46-116); BUN 8 mg/dl (9-23); CHLORIDE 106 mmol/L (98-107); CHOLESTEROL 152 mg/dL (<200); LDL CHOLESTEROL 76 mg/dL (9-159); POTASSIUM 3.7 mmol/L (3.4-5.1); SGPT/ALT 11 U/L (5-49); TOTAL PROTEIN 6.7 gm/dL (6.0-8.0); TRIGLYCERIDES 66 mg/dl (<150)
== END | disposition home or self-care (01) ==
LOC: LAB 11:16
PROVIDERS: ATTEND Nurse Practitioner Family
DX: E03.9 Hypothyroidism, unspecified (principal); E61.1 Iron deficiency; F41.9 Anxiety disorder, unspecified; E55.9 Vitamin D deficiency, unspecified; N63.10 Unspecified lump in the right breast, unspecified quadrant; Z98.84 Bariatric surgery status; Z80.3 Family history of malignant neoplasm of breast

== ENCOUNTER → 2023-09-20 | Outpatient (CLI) | payer OTHER | END | disposition home or self-care (01) | LOC: LAB 09:57 | PROVIDERS: ATTEND Nurse Practitioner Family | DX: E66.01 Morbid (severe) obesity due to excess calories (principal); R73.01 Impaired fasting glucose; R63.2 Polyphagia ==

== ENCOUNTER → 2023-11-15 | Outpatient (CLI) | payer OTHER ==
[2023-11-15 14:32] LABS: FREE T4 1.14 ng/dl (0.89-1.76)
== END | disposition home or self-care (01) ==
LOC: LAB 13:45
DX: E03.9 Hypothyroidism, unspecified (principal)

== ENCOUNTER 2023-12-06 15:25 | Emergency (ER) | payer OTHER ==
[~2023-12-06] VITALS: Ht 167.6 cm; Wt 127.0 kg
[2023-12-06 15:34] VITALS: BP 122/77
[2023-12-06 16:56] LABS: BASO # 0.1 10*3/uL (0.0-0.1); BASO % 0.6 % (0.0-1.0); EOS # 0.2 10*3/uL (0.0-0.4); EOS % 2.1 % (1.0-4.0); HEMATOCRIT 41.8 % (37.0-47.0); LYMPH # 2.1 10*3/uL (1.3-4.4); LYMPH % 26.3 % (27.0-41.0); MEAN CELL VOLUME 88.9 fl (81.0-99.0); MEAN CORPUSCULAR HGB 28.7 pg (27.0-31.0); MEAN CORPUSCULAR HGB CONC 32.3 g/dl (33.0-37.0); MONO # 0.5 10*3/uL (0.1-1.0); MONO % 6.2 % (3.0-9.0); NEUT # 5.2 10*3/uL (2.3-7.9); NEUT % 64.6 % (47.0-73.0); PLATELET COUNT AUTOMATED 235 10*3/uL (130-400); RED CELL DISTRI WIDTH 13.2 % (0-14.5); WHITE BLOOD COUNT 8.1 10*3/uL (4.8-10.8)
[2023-12-06 17:09] LABS: ACT PARTIAL THROMBO TIME 25.2 SECONDS (20.0-32.1)
[2023-12-06 17:19] LABS: ALKALINE PHOSPHATASE 119 U/L (46-116); BUN 11 mg/dl (9-23); CHLORIDE 106 mmol/L (98-107); SGPT/ALT 12 U/L (5-49); TOTAL PROTEIN 6.3 gm/dL (6.0-8.0)
[2023-12-06] MEDS ORDERED: LORazepam 0.5 MG TAB PO ONE (17:35)
[2023-12-06 17:54] LABS: BILIRUBIN Negative (Negative); BLOOD Negative (Negative); CLARITY Clear (Clear); COLOR Yellow (Yellow); GLUCOSE Negative (Negative); KETONE Trace (Negative); LEUKO ESTERASE Negative (Negative); NITRITE Negative (Negative); SPECIFIC GRAVITY 1.025 (1.001-1.030)
[2023-12-06 18:14] LABS: BACTERIA 1+
== END 2023-12-06 18:12 | disposition home or self-care (01) ==
LOC: ED 15:25
PROVIDERS: Internal Medicine
DX: F41.9 Anxiety disorder, unspecified (principal); Z79.899 Other long term (current) drug therapy; Z96.22 Myringotomy tube(s) status

== ENCOUNTER → 2023-12-08 | Outpatient (CLI) | payer OTHER ==
[2023-12-08 14:59] LABS: BASO % 0.5 % (0.0-1.0); EOS # 0.2 10*3/uL (0.0-0.4); EOS % 1.9 % (1.0-4.0); LYMPH % 25.4 % (27.0-41.0); MEAN CELL VOLUME 88.1 fl (81.0-99.0); MEAN CORPUSCULAR HGB 29.1 pg (27.0-31.0); MEAN PLATELET VOLUME 10.6 fl (9.6-12.3); MONO # 0.4 10*3/uL (0.1-1.0); MONO % 5.2 % (3.0-9.0); NEUT # 5.3 10*3/uL (2.3-7.9); NEUT % 66.7 % (47.0-73.0); PLATELET COUNT AUTOMATED 251 10*3/uL (130-400); RED BLOOD COUNT 4.88 10*6/uL (4.10-5.10); RED CELL DISTRI WIDTH 13.3 % (0-14.5)
== END | disposition home or self-care (01) ==
LOC: LAB 14:05
PROVIDERS: ATTEND Nurse Practitioner Family
DX: D50.9 Iron deficiency anemia, unspecified (principal); R53.83 Other fatigue; E03.9 Hypothyroidism, unspecified

== ENCOUNTER → 2024-06-04 | Outpatient (CLI) | payer OTHER ==
[2024-06-04 08:05] LABS: BASO % 0.8 % (0.0-1.0); EOS # 0.1 10*3/uL (0.0-0.4); EOS % 2.7 % (1.0-4.0); HEMATOCRIT 43.3 % (37.0-47.0); MEAN CELL VOLUME 86.8 fl (81.0-99.0); MEAN CORPUSCULAR HGB 27.9 pg (27.0-31.0); MEAN CORPUSCULAR HGB CONC 32.1 g/dl (33.0-37.0); MEAN PLATELET VOLUME 9.7 fl (9.6-12.3); MONO # 0.3 10*3/uL (0.1-1.0); MONO % 5.2 % (3.0-9.0); NEUT # 3.2 10*3/uL (2.3-7.9); NEUT % 61.2 % (47.0-73.0); PLATELET COUNT AUTOMATED 238 10*3/uL (130-400); RED BLOOD COUNT 4.99 10*6/uL (4.10-5.10); RED CELL DISTRI WIDTH 13.3 % (0-14.5); WHITE BLOOD COUNT 5.2 10*3/uL (4.8-10.8)
[2024-06-04 08:33] LABS: ALKALINE PHOSPHATASE 96 U/L (46-116); BUN 11 mg/dl (9-23); CHLORIDE 104 mmol/L (98-107); POTASSIUM 3.9 mmol/L (3.4-5.1); SGPT/ALT 11 U/L (5-49); TOTAL PROTEIN 6.9 gm/dL (6.0-8.0)
== END | disposition home or self-care (01) ==
LOC: LAB 07:45
PROVIDERS: ATTEND Nurse Practitioner Family
DX: E61.1 Iron deficiency (principal); E55.9 Vitamin D deficiency, unspecified; E03.9 Hypothyroidism, unspecified; F41.9 Anxiety disorder, unspecified

== ENCOUNTER 2024-09-15 10:01 | Emergency (ER) | payer OTHER ==
[~2024-09-15] VITALS: Ht 167.6 cm; Wt 117.9 kg
[2024-09-15 10:17] VITALS: BP 123/68
[2024-09-15] MEDS ORDERED: ZEPBOUND5 MG/0.5 M SQ (10:21)
[2024-09-15] MEDS ORDERED: LEVOTHYROXINE88 MCG PO (10:21)
[2024-09-15 10:57] LABS: BASO % 0.2 % (0.0-1.0); EOS # 0.1 10*3/uL (0.0-0.4); EOS % 1.7 % (1.0-4.0); HEMATOCRIT 41.7 % (37.0-47.0); MEAN CELL VOLUME 87.4 fl (81.0-99.0); MEAN CORPUSCULAR HGB 28.7 pg (27.0-31.0); MEAN CORPUSCULAR HGB CONC 32.9 g/dl (33.0-37.0); MONO # 0.1 10*3/uL (0.1-1.0); MONO % 1.5 % (3.0-9.0); NEUT # 5.1 10*3/uL (2.3-7.9); NEUT % 85.8 % (47.0-73.0); PLATELET COUNT AUTOMATED 250 10*3/uL (130-400); RED BLOOD COUNT 4.77 10*6/uL (4.10-5.10); RED CELL DISTRI WIDTH 13.2 % (0-14.5)
[2024-09-15 11:23] LABS: BUN 10 mg/dl (9-23); CHLORIDE 103 mmol/L (98-107); POTASSIUM 4.6 mmol/L (3.4-5.1)
[2024-09-15] MEDS ORDERED: Dexamethasone Sodium Phospha 20 MG/5 ML VIAL IM ONE (13:10)
== END 2024-09-15 13:45 | disposition home or self-care (01) ==
LOC: ED 10:01
PROVIDERS: Internal Medicine
DX: J02.9 Acute pharyngitis, unspecified (principal); E03.9 Hypothyroidism, unspecified; Z87.442 Personal history of urinary calculi; Z98.890 Other specified postprocedural states

== ENCOUNTER → 2024-10-17 | Outpatient (CLI) | payer OTHER ==
[~2024-10-17] MED LIST changes: +LEVOTHYROXINE88 MCG PO; +ZEPBOUND5 MG/0.5 M SQ
== END | disposition home or self-care (01) ==
LOC: US 14:14
PROVIDERS: ATTEND Nurse Practitioner Family
DX: E03.9 Hypothyroidism, unspecified (principal); R13.10 Dysphagia, unspecified; G24.9 Dystonia, unspecified; M54.2 Cervicalgia; R53.83 Other fatigue; R09.89 Other specified symptoms and signs involving the circulatory and respiratory systems

== ENCOUNTER → 2025-04-08 | Outpatient (CLI) | payer OTHER ==
[2025-04-08 09:53] LABS: BUN 14 mg/dl (9-23); LDL CHOLESTEROL 86 mg/dL (9-159); SGPT/ALT 8 U/L (5-49); VITAMIN D, 25-HYDROXY 45.0 ng/mL (30-100)
== END | disposition home or self-care (01) ==
LOC: LAB 08:38
PROVIDERS: ATTEND Nurse Practitioner Family
DX: E55.9 Vitamin D deficiency, unspecified (principal); R53.83 Other fatigue; E03.9 Hypothyroidism, unspecified; E66.01 Morbid (severe) obesity due to excess calories; Z13.220 Encounter for screening for lipoid disorders; F41.9 Anxiety disorder, unspecified